=== PATIENT | female | born 1935 | race Caucasian/White ===

== ENCOUNTER → 2018-01-30 | Outpatient (CLI) | payer MEDICARE ==
[~2018-01-30] MED LIST: ALDACTONE25 MG PO; ALLOPURINOL100 MG PO; ATELVIA35 MG PO; AZITHROMYCIN250 MG PO; CALCIUM600 MG PO; CEFTIN500 MG PO; CITALOPRAM HBR20 MG PO; CLONAZEPAM0.5 MG PO; COQ-1030 MG PO; ECPIRIN325 MG PO; EMBEDA PO; FAMOTIDINE20 MG PO; FERROUS SULFAT325 MG PO; FOLIC ACID1 MG PO; FUROSEMIDE40 MG PO; INTRINSI B12-F1 EACH PO; IOPAMIDOL 370 MG/ML 200 ML INFUS..BTL INJ ONE; KLOR-CON 88 MEQ PO; LEVAQUIN500 MG PO; LEVOTHYROXINE50 MCG PO; LEVOTHYROXINE75 MCG PO; LISINOPRIL10 MG PO; METHOTREXATE2.5 MG PO; METOPROLOL SUCC25 MG PO; METOPROLOL TART25 MG PO; PREDNISONE20 MG PO; PREDNISONE5 MG PO; RAMIPRIL5 MG PO; ROBAXIN-750750 MG PO; SIMVASTATIN20 MG PO; SIMVASTATIN40 MG PO; SODIUM BICARBO650 MG PO; SODIUM CHLORIDE 0.9% 50ML 50 ML ONE; TIZANIDINE HCL4 M1 PO; ULTRAM 50MG50 MG PO; ULTRAM50 MG PO; VALIUM5 MG PO; ZESTRIL10 MG PO
[2018-01-30 16:04] LABS: BLOOD UREA NITROGEN 15 mg/dL (7-26); BUN/CREATININE RATIO 21 (6-25); EST GLOMERULAR FILTRATION RATE > 60 ML/MIN (60-)
--- NOTE | 2018-01-30 19:03 | Diagnostic Imaging Report ---
PROCEDURE: CT scan of the chest WITH intravenous contrast, using standard protocol. TECHNIQUE: The chest was scanned utilizing a multidetector helical scanner from the lung apex through the level of the adrenal glands after the IV administration of 100 cc of Isovue 370. Coronal and sagittal multiplanar reformations were obtained. COMPARISON: Patients [facility], CT, CT CHEST WO, 12/14/2016, 12:39. Patients [facility], CT, CT CHEST W, 05/16/2015, 14:45. INDICATIONS: ABNORMAL CHEST X RAY FINDINGS: Lines/tubes: None. Lungs and Airways: Interval progression of subpleural reticulation, architectural distortion, traction bronchiectasis, and honeycombing involving predominantly the lower lobes bilaterally, lingula, and lower aspect of the right middle lobe. Interval development of focal consolidation in the posterior right upper lobe against the major fissure, with an associated 4.4 x 4.1 x 3.7 cm irregularly thick walled cavitary lesion (series 3, image 41 and sagittal image 34). No other cavitary lesions. No other consolidation. Airways are clear, without endobronchial lesions. Pleura: No effusion, or pneumothorax. Heart and mediastinum: Thyroid is unremarkable. Interval increase in cardiomegaly, with enlargement of the left atrium. Atherosclerotic calcification of the coronary arteries and thoracic aorta. Aorta is non-aneurysmal. The main pulmonary artery measures 3.0 cm. Lymph nodes: Enlarged highest mediastinal/ prevascular lymph node measuring 1.5 cm in short axis (series 2, image 29). Enlarged right lower paratracheal lymph node, measuring 1.2 cm in short axis (series 2, image 39). Enlarged left lower paratracheal lymph node, measuring 1.0 cm in short axis (series 2, image 44). Enlarged right hilar lymph node, measuring 1.3 cm in short axis (series 2, image 52). Enlarged left hilar lymph node, measuring 1.3 cm in short axis (series 2, image 54). No axillary adenopathy. Abdomen: Limited contrast-enhanced views of the upper abdomen show no abnormality within the visualized pancreas, or left kidney. Calcified splenic and hepatic granulomata. The adrenal glands are normal. Bones: No aggressive lytic lesions. Multilevel degenerative disc changes in the thoracic spine. Generalized osteopenia. IMPRESSION: 1. interval development of 4.4 cm thick walled cavitary lesion in the posterior right upper lobe against the major fissure. Primary diagnostic considerations are infection (particularly TB or atypical mycobacterial disease or less likely pulmonary abscess as complication of necrotizing pneumonia) versus necrotizing primary lung neoplasm. 2. Interval progression of pulmonary findings suggestive of IPF. 3. Enlarged mediastinal, and hilar nodes, which may be reactive in the setting of infection or metastatic in the setting of primary bronchogenic neoplasm. 4. Prior granulomatous disease. Ranulfo Davenport M.D. Dictated by: Ranulfo Davenport M.D. on 01/30/2018 at 19:03 Electronically approved by: Ranulfo Davenport M.D. on 01/30/2018 at 19:03
== END ==
LOC: CT 13:51
PROVIDERS: ATTEND Internal Medicine
DX: R91.8 Other nonspecific abnormal finding of lung field (principal)
CPT/HCPCS: 36415; 71260; 82565; 84520; Q9967

== ENCOUNTER 2018-09-08 19:58 | Inpatient (IN) | payer MEDICARE, OTHER ==
[~2018-09-08] VITALS: Ht 154.9 cm; Wt 54.4 kg
[~2018-09-08 19:58] MED LIST changes: -IOPAMIDOL 370 MG/ML 200 ML INFUS..BTL INJ ONE; -SODIUM CHLORIDE 0.9% 50ML 50 ML ONE
[2018-09-08] MEDS ORDERED: ACETAMINOPHEN 1000 MG/100 ML 100 ML IV ONE (20:06)
[2018-09-08] MEDS ORDERED: SODIUM CHLORIDE 0.9% 1000ML 1,000 ML ONE (20:06)
[2018-09-08] MEDS ORDERED: PANTOPRAZOLE 40 MG 10ML VIAL IV STA (20:07)
[2018-09-08] MEDS ORDERED: ACETAMINOPHEN 1000 MG/100 ML IV STA (20:07)
[2018-09-08] MEDS ORDERED: SODIUM CHLORIDE 0.9% 1000ML 1,000 ML IV STA (20:07)
[2018-09-08] MEDS ORDERED: ACETAMINOPHEN 1000 MG/100 ML IV PRN (20:15)
[2018-09-08 20:45] LABS: BASOPHILS # (AUTO) 0.2 (0.0-0.1); BASOPHILS % 0.5 % (0.0-1.0); HEMATOCRIT 43.5 % (34.2-44.1); HEMOGLOBIN 14.8 g/dL (12.0-16.0); LYMPHOCYTES # (AUTO) 2.3 (1.0-3.2); LYMPHOCYTES % 8.3 % (18.0-39.1); MEAN CORPUSCULAR HEMOGLOBIN 33.7 pg (28-32); MEAN CORPUSCULAR VOLUME 99.1 fL (81-99); MONOCYTES # (AUTO) 0.3 (0.2-0.8); MONOCYTES % 1.2 % (4.4-11.3); NEUTROPHILS # (AUTO) 24.5 (2.1-6.9); NEUTROPHILS % 88.6 % (38.7-80.0); PLATELET COUNT 356 x10e3/uL (140-360); RED BLOOD COUNT 4.39 x10e6/uL (3.6-5.1); RED CELL DISTRIBUTION WIDTH 14.9 % (11.7-14.4)
[2018-09-08] MEDS ORDERED: VANCOMYCIN 1GM/NS 250 ML 250 ML IV ONE (20:45)
[2018-09-08 20:50] LABS: BILIRUBIN,URINE 1+ (NEGATIVE); CLARITY,URINE SL CLOUDY (CLEAR); COLOR,URINE YELLOW (YELLOW); KETONES,URINE NEGATIVE (NEGATIVE); LEUKOCYTE ESTERASE ,URINE TRACE (NEGATIVE); NITRITE,URINE POSITIVE (NEGATIVE); PROTEIN,URINE DIPSTICK 2+ (NEGATIVE); URINE UROBILINOGEN 0.2 mg/dL (0.2 - 1)
[2018-09-08 20:57] LABS: INR 1.16; PROTHROMBIN TIME 15.8 seconds (11.9-14.5)
[2018-09-08 20:58] LABS: PARTIAL THROMBOPLASTIN TIME 27.5 seconds (23.8-35.5)
[2018-09-08 21:06] LABS: ALANINE AMINOTRANSFERASE 15 IU/L (0-55); ALBUMIN 2.2 g/dL (3.5-5.0); ALBUMIN/GLOBULIN RATIO 0.4 (0.8-2.0); ALKALINE PHOSPHATASE 90 IU/L (40-150); ANION GAP 18.7 mmol/L (8-16); BLOOD UREA NITROGEN 33 mg/dL (7-26); BUN/CREATININE RATIO 39 (6-25); CALCIUM 9.2 mg/dL (8.4-10.2); CARBON DIOXIDE 17 mmol/L (22-29); CHLORIDE 109 mmol/L (98-107); CREATINE KINASE 79 IU/L (29-168); CREATININE, SERUM 0.84 mg/dL (0.57-1.11); EST GLOMERULAR FILTRATION RATE > 60 ML/MIN (60-); GLUCOSE 221 mg/dL (74-118); MAGNESIUM 1.9 MG/DL (1.3-2.1); POTASSIUM 3.7 mmol/L (3.5-5.1); SODIUM 141 mmol/L (136-145)
[2018-09-08 21:07] LABS: BACTERIA,URINE MANY /HPF; RBC,URINE 21-50 /HPF (0-5); WBC,URINE (MAN) 21-50 /HPF (0-5)
[2018-09-08 21:13] LABS: B-TYPE NATRIURETIC PEPTIDE2 552.8 pg/mL (0-100)
[2018-09-08] MEDS: CEFEPIME HCL 2 GM VIAL IV SCH (21:48)
--- NOTE | 2018-09-08 22:15 | Diagnostic Imaging Report ---
EXAMINATION: CHEST SINGLE (PORTABLE) INDICATION: Fevers, altered mental status COMPARISON: 06/26/2017 FINDINGS: TUBES and LINES: None. LUNGS: Lungs are not well inflated. There are bibasilar atelectasis. There is mild prominence of the central pulmonary vasculature, consistent with pulmonary venous congestion. There are areas of confluent airspace opacity in the left lung base, right lung base and lateral right upper lobe with evidence of cystic bronchiectasis PLEURA: No pleural effusion or pneumothorax. HEART AND MEDIASTINUM: The cardiomediastinal silhouette is unremarkable. There are atherosclerotic calcifications within the aorta. BONES AND SOFT TISSUES: No acute osseous lesion. Soft tissues are unremarkable. UPPER ABDOMEN: No free air under the diaphragm. IMPRESSION: 1. Findings are compatible with chronic bilateral bronchiectasis and associated airspace opacity suspicious for superimposed infection. CT of the chest without contrast can be obtained for better characterization. Signed by: Dr. Steven Urrutia M.D. on 09/08/2018 10:12 PM
[2018-09-08] MEDS ORDERED: FERROUS SULFAT325 MG PO (22:20)
[2018-09-08] MEDS ORDERED: CLONAZEPAM0.5 MG PO (22:20)
[2018-09-08] MEDS ORDERED: GERI-TUSSI100 MG/5 M PO (22:20)
[2018-09-08] MEDS ORDERED: GABAPENTIN100 MG PO ×2 (22:20)
[2018-09-08] MEDS ORDERED: ACETAMINOPHEN325 M1 PO (22:20)
[2018-09-08] MEDS ORDERED: DIFF-STAT POWD1 EACH PO (22:20)
[2018-09-08] MEDS ORDERED: TYLENOL WITH C1 EACH PO (22:20)
[2018-09-08] MEDS ORDERED: IMODIUM2 MG PO (22:20)
[2018-09-08] MEDS ORDERED: QUESTRAN PACKET4 GM PO (22:20)
[2018-09-08] MEDS ORDERED: DOCUSATE SODIU100 MG PO (22:20)
[2018-09-08] MEDS ORDERED: SODIUM CHLORIDE 0.9% 1000ML 1,000 ML IV ONE (22:45)
[2018-09-08] MEDS ORDERED: DEXTROSE 50% SYRINGE 50 ML IV PRN (22:45)
[2018-09-08] MEDS ORDERED: ONDANSETRON HCL INJ 2 MG/ML VIAL IV PRN (22:45)
--- NOTE | 2018-09-08 22:52 | Diagnostic Imaging Report ---
EXAMINATION: Head CT without contrast. HISTORY:Altered mental status. COMPARISON:Report of CT brain from 08/20 2010 and MRI brain from 08/21/2010. Images are not available for comparison at the time of interpretation. TECHNIQUE: Multidetector axial images were obtained from the foramen magnum to the vertex without contrast. The images were reconstructed using brain and bone algorithms. Thin section brain images were reformatted into coronal and sagittal planes. Dose modulation, iterative reconstruction, and/or weight based adjustment of the mA/kV was utilized to reduce the radiation dose to as low as reasonably achievable. Intravenous contrast: None IMAGE QUALITY: Suboptimal evaluation due to significant motion-related streak artifacts. FINDINGS: Skull/scalp: No lytic or blastic. lesions. No surgical changes. Parenchyma: Suboptimal evaluation due to significant motion artifacts, despite the limitation no gross acute intracranial hemorrhage or mass. Large cortical-based hypodensity in right centrum semiovale, church radiata, middle, inferior frontal gyrus, 3 central gyrus and parietal lobe with regional volume loss represents chronic encephalomalacia from prior vascular insult in MCA territory. Possibility of superimposed acute on chronic vascular insult is not excluded. Nonspecific bilateral frontoparietal patchy white matter hypodensity are likely related to small vessel ischemic changes. Arteries: No density suggestive of thrombosis. Atherosclerotic calcification in bilateral carotid siphon. Dural sinuses: No abnormal density suggestive of thrombosis. Ventricles: Moderate compensated dilatation due to volume loss with superimposed exvacuodilatation of right lateral ventricle. No acute hydrocephalus. Extra-axial spaces: No abnormal density. Brain volume: Generalized age-related cerebral volume loss. Craniocervical junction: No mass, Chiari malformation, or basilar invagination. Sella: Partial empty sella. Paranasal/mastoid sinuses: Complete opacification of right mastoid air cells. IMPRESSION: Suboptimal evaluation due to significant motion artifacts, despite the limitation no gross acute intracranial abnormality. 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 Moderate supratentorial white matter microvascular ischemic changes. Generalized age-related cerebral volume loss. Signed by: Dr. Anita Anderson M.D. on 09/08/2018 10:49 PM
[2018-09-08] MEDS: METRONIDAZOLE 500MG/NS 100ML 100 ML IV SCH (23:44)
[2018-09-09] VITALS (9 sets, daily range): BP systolic 96–120; BP diastolic 55–71
[2018-09-09] MEDS: METRONIDAZOLE 500MG/NS 100ML 100 ML IV SCH ×4 (06:00→23:58)
[2018-09-09 06:30] LABS: BASOPHILS # (AUTO) 0.2 (0.0-0.1); BASOPHILS % 0.6 % (0.0-1.0); HEMATOCRIT 46.1 % (34.2-44.1); HEMOGLOBIN 15.6 g/dL (12.0-16.0); LYMPHOCYTES # (AUTO) 1.6 (1.0-3.2); LYMPHOCYTES % 6.1 % (18.0-39.1); MEAN CORPUSCULAR HEMOGLOBIN 33.8 pg (28-32); MEAN CORPUSCULAR HGB CONC 33.8 g/dL (31-35); MEAN CORPUSCULAR VOLUME 99.8 fL (81-99); MONOCYTES # (AUTO) 0.2 (0.2-0.8); MONOCYTES % 0.8 % (4.4-11.3); NEUTROPHILS # (AUTO) 24.6 (2.1-6.9); NEUTROPHILS % 90.9 % (38.7-80.0); PLATELET COUNT 300 x10e3/uL (140-360); RED BLOOD COUNT 4.62 x10e6/uL (3.6-5.1)
[2018-09-09] MEDS: INSULIN REGULAR, HUMAN 100 UNIT/1 ML 3ML VIAL SQ SCH ×4 (07:30→20:58)
[2018-09-09 08:25] LABS: ALANINE AMINOTRANSFERASE 14 IU/L (0-55); ALBUMIN 2.1 g/dL (3.5-5.0); ALBUMIN/GLOBULIN RATIO 0.4 (0.8-2.0); ALKALINE PHOSPHATASE 85 IU/L (40-150); ANION GAP 19.5 mmol/L (8-16); BLOOD UREA NITROGEN 33 mg/dL (7-26); BUN/CREATININE RATIO 41 (6-25); CALCIUM 8.9 mg/dL (8.4-10.2); CARBON DIOXIDE 19 mmol/L (22-29); CHLORIDE 109 mmol/L (98-107); CREATININE, SERUM 0.81 mg/dL (0.57-1.11); EST GLOMERULAR FILTRATION RATE > 60 ML/MIN (60-); GLUCOSE 129 mg/dL (74-118); POTASSIUM 3.5 mmol/L (3.5-5.1); SODIUM 144 mmol/L (136-145)
--- NOTE | 2018-09-09 08:57 | History and Physical ---
CHIEF COMPLAINT 1. Diarrhea. 2. High white count. 3. Change in mental status. HPI: This is an 83-year-old half-way resident at [facility] in [place] with a past medical history of rheumatoid arthritis, rheumatic lung disease, pulmonary tuberculosis, hypothyroidism, CVA, atherosclerotic heart disease, was in her usual health until a few days when she started having episodes of diarrhea. Found to have a high white count. White count increased. Diarrhea not controlled. She also had burning on urination. The patient with also change in mental status. No cough. No shortness of breath. No chest pain. No leg pain. No leg swelling. No seizures. No new focal weakness. PAST MEDICAL HISTORY 1. Atherosclerotic heart disease. 2. CVA with left hemiplegia. 3. Rheumatic lung disease with pulmonary fibrosis. 4. COPD. 5. Hypertension. 6. Hypothyroidism. PAST SURGICAL HISTORY: None. HABITS: Denies smoking. Denies alcohol. Denies illicit drug use. SOCIAL HISTORY: This patient is a . Lives at [facility] in [place]. MEDICATIONS: Per discharge summary. Noncontributory. REVIEW OF SYSTEMS GENERAL: Has weakness. HEENT: No . CARDIOPULMONARY: No chest pain. Has no shortness of breath. No cough or hematemesis. ABDOMEN: No abdominal pain. No nausea. No vomiting but has watery diarrhea with foul smell. GENITOURINARY: Has some dysuria. MUSCULOSKELETAL: No joint pain. LEVEL VIAL INSPECTOR AND TESTER: Has left-sided hemiplegia, but no seizures. PHYSICAL EXAMINATION GENERAL: An 83-year-old female with . VITALS: Temperature 98.2, pulse 79, respiratory rate 18, blood pressure 103/55. HEENT: Head is normocephalic and atraumatic. Sclerae pale and reacting to light. NECK: No JVD. No carotid bruits. SKIN: Dry. Tongue is dry. LUNGS: Air entry fair. Decreased breath sounds in both bases. HEART: S1 and S2. Regular rate and rhythm. No S3. No S4. No murmurs. ABDOMEN: Soft and nontender. No guarding. No rigidity. EXTREMITIES: No edema. Peripheral pulses +1. LEVEL VIAL INSPECTOR AND TESTER: The patient has left hemiplegia and altered mental status. Nonverbal. Brain CT with no new CVA. Chest x-ray findings compatible with bilateral bronchiectasis present, as well as infection. WBC is 21,250. Nitrate positive. Leukocyte trace. Sodium 141, potassium 3.7, BUN 33, creatinine 0.84, glucose 221. Albumin is 2.2. White count 27.09, hemoglobin 15.6, hematocrit 46.1, and platelets 300,000. ASSESSMENT 1. Sepsis. 2. Possible urosepsis. 3. Possible Clostridium difficile colitis, sepsis. 4. Possible pneumonia. 5. Metabolic encephalopathy. 6. Recently treated pulmonary tuberculosis. 7. History of pulmonary fibrosis and rheumatic lung disease. 8. Chronic obstructive pulmonary disease. 9. History of cerebrovascular accident with left hemiplegia. 10. Hypothyroidism. 11. Hypertension. PLAN: Admit the patient to medical floor. IV cefepime 2 g q.12 h. IV Flagyl 500 mg IV q.6 h. IV fluids. Normal saline at 75 mL per hour. Continue half-way medicine. DNR. Prognosis poor. Pulmonary and ID consult. Will discuss with family. Job#: [id number] [place]
[2018-09-09] MEDS: BALSAM PERU/CASTOR OIL 60 GM OINT...G. TP SCH ×2 (09:00→16:42)
[2018-09-09 09:12] LABS: BAND NEUTROPHILS % (MANUAL) 5 %; LYMPHOCYTES % (MANUAL) 3 % (19-48); MONOCYTES % (MANUAL) 2 % (3.4-9.0); NEUTROPHILS % (MANUAL) 90 % (40-74); PLATELET ESTIMATE ADEQUATE; PLATELET MORPHOLOGY COMMENT NORMAL; RBC MORPHOLOGY COMMENT NORMAL
[2018-09-09] MEDS: PANTOPRAZOLE 40 MG 10ML VIAL IV SCH (09:55)
[2018-09-09] MEDS: FOLIC ACID 1 MG TAB PO SCH ×3 (09:55→20:57)
[2018-09-09] MEDS: ASPIRIN 325 MG TAB EC PO SCH (09:55)
[2018-09-09] MEDS: CEFEPIME HCL 2 GM VIAL IV SCH (09:55)
[2018-09-09] MEDS: FAMOTIDINE 20 MG TAB PO SCH ×2 (09:56→16:30)
[2018-09-09] MEDS: LEVOTHYROXINE SODIUM 75 MCG TAB PO SCH (09:59)
[2018-09-09] MEDS: CHOLESTYRAMINE 4 GM PACKET PO SCH ×2 (09:59→22:05)
[2018-09-09] MEDS: PREDNISONE 5 MG TAB PO SCH (09:59)
[2018-09-09] MEDS ORDERED: PIPER-TAZ 3.375 GM 50 ML IV SCH (13:00)
[2018-09-09] MEDS ORDERED: VANCOMYCIN 1GM/NS 250 ML 250 ML IV SCH (14:00)
--- NOTE | 2018-09-09 14:18 | Consultation ---
DATE OF CONSULTATION: PULMONARY CONSULTATION REASON FOR THE CONSULT: History of Mycobacterium avium, MAC infection, and pulmonary fibrosis. HPI: Ms. Barber is an 83-year-old female, very well known to me from previous admission here and also from my office visits. She has a history of pulmonary fibrosis. 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 She also sustained a stroke, also has a history of rheumatoid arthritis, and has been at [facility]. I spoke to Dr. Simmons, who is the infectious disease doctor for Ms. Barber. Patient did not tolerate MAC treatment which was discontinued, and she did not receive any treatment for MAC, and I did a bronchoscopy at [facility] which was negative for tuberculosis. She is currently altered and unable to give me any history. The source of history is the chart. REVIEW OF SYSTEMS: Unable to elicit a detailed review of systems from the patient because of her mental status. PAST MEDICAL HISTORY: Pulmonary fibrosis, rheumatic lung disease, rheumatoid arthritis, history of CVA with left hemiplegia, dementia, hypertension, hypothyroidism. FAMILY HISTORY AND SOCIAL HISTORY: She does not smoke, does not drink. Currently living at the skilled nursing. The son-in-law and daughter are involved in the care. PHYSICAL EXAMINATION VITAL SIGNS: Temperature 98.3, pulse of 103, blood pressure 106/55, respiratory rate of 18, O2 sat 95%. HEENT: Head atraumatic, normocephalic. Poor dentition. Is not cooperative with opening her mouth. CHEST: Some crackles bilaterally. HEART: S1, S2 audible. ABDOMEN: Soft, nontender. EXTREMITIES: No pedal edema. She is contracted, weak because of the stroke. LABS: White count of 27,000, hemoglobin 15.6, platelets 300. Chemistry; sodium 144, potassium 3.5, chloride 109, carbon dioxide 19, BUN 33, creatinine 0.8. Her lactic acid was 30.6 on admission, went down to 24.6. She underwent a brain CT, which showed chronic encephalomalacia. She had a chest x-ray done, which I am unable to pull the films and it shows bronchiectasis and superimposed infection. ASSESSMENT: Ms. Barber is an 83-year-old female with rheumatic lung disease, pulmonary fibrosis, history of fibrocavitary Mycobacterium avium complex disease. Patient was under treatment with Dr. Simmons; however, she was unable to tolerate the treatment. I had a detailed discussion with Dr. Simmons and currently, she is not on any treatment. She came in with leukocytosis, high lactic acid, and sepsis with urine culture growing gram-negative bacillus. Blood culture is pending. CURRENT PROBLEMS 1. Leukocytosis infection, possibility of pneumonia. I am unable to pull the chest x-ray films; however, the report shows probably superimposed pneumonia on fibrocavitary MAC disease. 2. Urinary tract infection. 3. Rheumatic lung disease. 4. Debility, dementia, and weakness. 5. Bedbound status. 6. History of stroke. 7. Hypothyroidism. 8. Malnutrition and severe weight loss. PLAN: Patient has received a dose of vancomycin in the emergency room. I will start the patient on vancomycin and Zosyn. Discontinue the cefepime. Possibility of anaerobic infection is also there. Lactic acid is improving. Patient is on IV hydration, which will be continued. Overall, with fibrocavitary lung disease, history of stroke, and her functional status, the prognosis is poor. I will discontinue the pulmonary TB isolation as patient does not have pulmonary tuberculosis. She has pulmonary MAC disease. Thank you for this consult. Job#: [id number] [place]
--- OUTSIDE RECORDS SUMMARY | 2018-09-09 14:26 | XMS REPORT ---
[facility] Address Unknown Phone Unavailable Care Team Providers Care Corporate Counselor Name Role Phone Wei CRUZ Unavailable Unavailable KIA MÉNDEZ Unavailable Unavailable Payers Payer Name Policy Type Policy Number Effective Date Expiration Date Problems This patient has no known problems. Allergies, Adverse Reactions, Alerts Allergy Name Allergy Type Status Severity Reaction(s) Onset Date Inactive Date Treating Clinician Comments lisinopril DA Active SV 2018-03-11 00:00:00 celecoxib DA Active U 2018-03-11 00:00:00 Medications This patient has no known medications. Results Test Description Test Time Test Comments Text Results Atomic Results Result Comments CT BRAIN WO 2018-09-08 22:41:00 [facility] [address] [place] [address] Patient Name: RISSA CAN MR #: [id number] : 1935 Age/Sex: 83/F Req #: [id number] Adm Physician: Ordered by: CHRISTOPHER CRUZ MD Report #: [id number] Location: ER Room/Bed: Procedure: [id number] CT/CT BRAIN WO Exam Date: 09/08/18 Exam Time: 2141 REPORT STATUS: Signed EXAMINATION: Head CT without contrast. HISTORY:Altered mental status. COMPARISON:Report of CT brain from 08/20 2010 and MRI brain from 08/21/2010. Images are not available for comparison at the time of interpretation. TECHNIQUE: Multidetector axial images were obtained from the foramen magnum to the vertex without contrast. The images were reconstructed using brain and bone algorithms. Thin section brain images were reformatted into coronal and sagittal planes. Dose modulation, iterative reconstruction, and/or weight based adjustment of the mA/kV was utilized to reduce the radiation dose to as low as reasonably achievable. Intravenous contrast: None IMAGE QUALITY: Suboptimal evaluation due to significant motion- related streak artifacts. FINDINGS: Skull/scalp: No lytic or blastic. lesions. No surgical changes. Parenchyma: Suboptimal evaluation due to significant motion artifacts, despite the limitation no gross acute intracranial hemorrhage or mass. Large cortical-based hypodensity in right centrum semiovale, church radiata, middle, inferior frontal gyrus, 3 central gyrus and parietal lobe with regional volume loss represents chronic encephalomalacia from prior vascular insult in MCA territory. Possibility of superimposed acute on chronic vascular insult is not excluded. Nonspecific bilateral frontoparietal patchy white matter hypodensity are likely related to small vessel ischemic changes. Arteries: No density suggestive of thrombosis. Atherosclerotic calcification in bilateral carotid siphon. Dural sinuses: No abnormal density suggestive of thrombosis. Ventricles: Moderate compensated dilatation due to volume loss with superimposed exvacuodilatation of right lateral ventricle. No acute hydrocephalus. Extra-axial spaces: No abnormal density. Brain volume: Generalized age- related cerebral volume loss. Craniocervical junction: No mass, Chiari malformation, or basilar invagination. Sella: Partial empty sella. Paranasal/mastoid sinuses: Complete opacification of right mastoid air cells. IMPRESSION: Suboptimal evaluation due to significant motion artifacts, despite the limitation no gross acute intracranial abnormality. 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 Moderate supratentorial white matter microvascular ischemic changes. Generalized age-related cerebral volume loss. Signed by: Dr. Anita Anderson M.D. on 09/08/2018 10:49 PM Dictated By: ANITA ANDERSON MD 48 Transcribed By: WENDY on 09/08/182248 COPY TO: CHRISTOPHER CRUZ MD CHEST SINGLE (PORTABLE) 2018-09-08 22:11:00 [place] [address] Patient Name: RISSA CAN MR #: [id number] : 1935 Age/Sex: 83/F Req #: [id number] Adm Physician: Ordered by: CHRISTOPHER CRUZ MD Report #: [id number] Location: ER Room/Bed: Procedure: [id number] DX/CHEST SINGLE (PORTABLE) Exam Date: 09/08/18 Exam Time: 2139 REPORT STATUS: Signed EXAMINATION: CHEST SINGLE (PORTABLE) INDICATION: Fevers, altered mental status COMPARISON: 06/26/2017 FINDINGS: TUBES and LINES: None. LUNGS: Lungs are not well inflated. There are bibasilar atelectasis. There is mild prominence of the central pulmonary vasculature, consistent with pulmonary venous congestion. There are areas of confluent airspace opacity in the left lung base, right lung base and lateral right upper lobe with evidence of cystic bronchiectasis PLEURA: No pleural effusion or pneumothorax. HEART AND MEDIASTINUM: The cardiomediastinal silhouette is unremarkable. There are atherosclerotic calcifications within the aorta. BONES AND SOFT TISSUES: No acute osseous lesion. Soft tissues are unremarkable. UPPER ABDOMEN: No free air under the diaphragm. IMPRESSION: 1. Findings are compatible with chronic bilateral bronchiectasis and associated airspace opacity suspicious for superimposed infection. CT of the chest without contrast can be obtained for better characterization. Signed by: Dr. Steven Urrutia M.D. on 09/08/2018 10:12 PM Dictated By: STEVEN SWANN MD 11 Transcribed By: WENDY on 09/08/182211 COPY TO: CHRISTOPHER CRUZ MD CT CHEST W [place] [address] Patient Name: RISSA CAN MR #: [id number] : 1935 Age/Sex: 82/F Req #: [id number] Adm Physician: Ordered by: KIA MÉNDEZ MD Report #: [id number] Location: CT Room/Bed: Procedure: [id number] CT/CT CHEST W Exam Date: 01/30/18 Exam Time: 1620 REPORT STATUS: Signed PROCEDURE: CT scan of the chest WITH intravenous contrast, using standard protocol. TECHNIQUE: The chest was scanned utilizing a multidetector helical scanner from the lung apex through the level of the adrenal glands after the IV administration of 100 cc of Isovue 370. Coronal and sagittal multiplanar reformations were obtained. COMPARISON: [facility], CT, CT CHEST WO, 12/14/2016, 12:39. [facility], CT, CT CHEST W, 05/16/2015, 14:45. INDICATIONS: ABNORMAL CHEST X RAY FINDINGS: Lines/tubes: None. Lungs and Airways: Interval progression of subpleural reticulation, architectural distortion, traction bronchiectasis, and honeycombing involving predominantly the lower lobes bilaterally, lingula, and lower aspect of the right middle lobe. Interval development of focal consolidation in the posterior right upper lobe against the major fissure, with an associated 4.4 x 4.1 x 3.7 cm irregularly thick walled cavitary lesion (series 3, image 41 and sagittal image 34). No other cavitary lesions. No other consolidation. Airways are clear, without endobronchial lesions. Pleura: No effusion, or pneumothorax. Heart and mediastinum: Thyroid is unremarkable. Interval increase in cardiomegaly, with enlargement of the left atrium. Atherosclerotic calcification of the coronary arteries and thoracic aorta. Aorta is non-aneurysmal. The main pulmonary artery measures 3.0 cm. Lymph nodes: Enlarged highest mediastinal/ prevascular lymph node measuring 1.5 cm in short axis (series 2, image 29). Enlarged right lower paratracheal lymph node, measuring 1.2 cm in short axis (series 2, image 39). Enlarged left lower paratracheal lymph node, measuring 1.0 cm in short axis (series 2, image 44). Enlarged right hilar lymph node, measuring 1.3 cm in short axis (series 2, image 52). Enlarged left hilar lymph node, measuring 1.3 cm in short axis (series 2, image 54). No axillary adenopathy. Abdomen: Limited contrast-enhanced views of the upper abdomen show no abnormality within the visualized pancreas, or left kidney. Calcified splenic and hepatic granulomata. The adrenal glands are normal. Bones: No aggressive lytic lesions. Multilevel degenerative disc changes in the thoracic spine. Generalized osteopenia. IMPRESSION: 1. interval development of 4.4 cm thick walled cavitary lesion in the posterior right upper lobe against the major fissure. Primary diagnostic considerations are infection (particularly TB or atypical mycobacterial disease or less likely pulmonary abscess as complication of necrotizing pneumonia) versus necrotizing primary lung neoplasm. 2. Interval progression of pulmonary findings suggestive of IPF. 3. Enlarged mediastinal, and hilar nodes, which may be reactive in the setting of infection or metastatic in the setting of primary bronchogenic neoplasm. 4. Prior granulomatous disease. Eduar aDvenport M.D. Dictated by: Eduar Davenport M.D. on 01/30/2018 at 19:03 Electronically approved by: Eduar Davenport M.D. on 01/30/2018 at 19:03 Dictated By: EDUAR DAVENPORT MD 02 Transcribed By: JOSE DAVID on 01/30/181902 COPY TO: KIA MÉNDEZ MD
--- NOTE | 2018-09-09 16:27 | Consultation ---
DATE OF CONSULTATION: REASON FOR CONSULTATION: Sepsis. HISTORY OF PRESENT ILLNESS: This patient who is an 83-year-old white female does not really provide any meaningful information. History was taken mainly from the chart. She is coming from [facility] with fever, altered mental status, sepsis, and diarrhea. The patient who has history of rheumatoid arthritis, rheumatic lung disease, pulmonary tuberculosis, before hypothyroidism, CVA, atherosclerotic disease, and coronary artery disease. Apparently, she was in stable condition until she is not having diarrhea, fever, chills, elevated white count. She was brought here. The patient is currently confused. The patient does not provide any meaningful information. She does have history of atherosclerotic heart disease, CVA, rheumatoid lung disease, pulmonary fibrosis, COPD, hypertension, and hypothyroidism. PAST MEDICAL HISTORY: Could not be obtained. REVIEW OF SYSTEMS: Could not be obtained. PHYSICAL EXAMINATION GENERAL: She is as mentioned above nonverbal and noncommunicative. VITALS: Stable. T max 101.9. HEENT: Normocephalic. NECK: No JVD. No lymphadenopathy. No thyromegaly. CHEST: Few crackles. COR: S1, S2. No S3, S4, or murmur. ABDOMEN: Soft, distended. EXTREMITIES: No edema. LAB: White count is 27.09, hemoglobin 15, hematocrit 46. Her sodium 144, potassium 3.5, creatinine 0.81. Urine culture is gram-negative rods. Blood cultures is still pending. She had a chest x-ray which shows bilateral bronchiectasis. IMPRESSION: Diarrhea, concerned about Clostridium difficile. Discontinue vancomycin. Discontinue Zosyn. We will put her on metronidazole. Also, we will give oral vancomycin. The patient does not swallow with feeding tube and give oral vancomycin. Continue supportive care. Prognosis is poor. Other medical problem as mentioned above. We will follow with you. Job#: [id number] VAS
[2018-09-09] MEDS: SODIUM CHLORIDE 0.9% 1000ML 1,000 ML IV SCH (18:33)
--- NOTE | 2018-09-09 19:56 | Diagnostic Imaging Report ---
EXAM: ABDOMEN-1VIEW (KUB), DATE: 09/09/2018 5:57 PM INDICATION: NG tube placement. COMPARISON: None FINDINGS: LINES/TUBES: Nasogastric tube with tip projecting over the gastric body. Sidehole projects at the expected level of the gastroesophageal junction. BOWEL PATTERN: Paucity of small bowel gas. Gas present within the colon and rectum. SOFT TISSUES: Vascular calcifications. No mass effect. LUNG BASES: Limited evaluation. Please refer to dedicated chest radiograph 09/08/2018 for description of chronic bilateral bronchiectasis with possible superimposed infection. BONES: No acute findings. Left femoral intramedullary jake. IMPRESSION: Nasogastric tube tip projects over the gastric body. Sidehole projects over the expected GE junction. Signed by: DR. Magno Spear MD on 09/09/2018 7:53 PM
[2018-09-09] MEDS: VANCOMYCIN 250MG/5ML ORAL SOLN PO SCH ×2 (20:56→23:58)
[2018-09-10] VITALS (8 sets, daily range): BP systolic 108–152; BP diastolic 58–82
[2018-09-10] MEDS: VANCOMYCIN 250MG/5ML ORAL SOLN PO SCH ×4 (05:33→23:20)
[2018-09-10] MEDS: METRONIDAZOLE 500MG/NS 100ML 100 ML IV SCH ×3 (05:33→21:24)
[2018-09-10] MEDS: LEVOTHYROXINE SODIUM 75 MCG TAB PO SCH (05:33)
[2018-09-10 07:13] LABS: BASOPHILS # (AUTO) 0.1 (0.0-0.1); BASOPHILS % 0.2 % (0.0-1.0); LYMPHOCYTES # (AUTO) 1.1 (1.0-3.2); LYMPHOCYTES % 3.8 % (18.0-39.1); MEAN CORPUSCULAR HEMOGLOBIN 33.7 pg (28-32); MEAN CORPUSCULAR HGB CONC 34.4 g/dL (31-35); MEAN CORPUSCULAR VOLUME 97.8 fL (81-99); MONOCYTES # (AUTO) 0.3 (0.2-0.8); MONOCYTES % 0.9 % (4.4-11.3); NEUTROPHILS # (AUTO) 25.7 (2.1-6.9); NEUTROPHILS % 92.9 % (38.7-80.0); PLATELET COUNT 229 x10e3/uL (140-360); RED BLOOD COUNT 3.68 x10e6/uL (3.6-5.1); RED CELL DISTRIBUTION WIDTH 14.9 % (11.7-14.4)
[2018-09-10 07:15] LABS: HEMOGLOBIN 12.4 g/dL (12.0-16.0)
[2018-09-10] MEDS: INSULIN REGULAR, HUMAN 100 UNIT/1 ML 3ML VIAL SQ SCH ×4 (07:30→20:17)
[2018-09-10 07:34] LABS: BLOOD UREA NITROGEN 30 mg/dL (7-26); BUN/CREATININE RATIO 47 (6-25); CARBON DIOXIDE 15 mmol/L (22-29); CHLORIDE 117 mmol/L (98-107); CREATININE, SERUM 0.64 mg/dL (0.57-1.11); EST GLOMERULAR FILTRATION RATE > 60 ML/MIN (60-); GLUCOSE 107 mg/dL (74-118); SODIUM 143 mmol/L (136-145)
[2018-09-10] MEDS: BALSAM PERU/CASTOR OIL 60 GM OINT...G. TP SCH ×3 (09:00→17:00)
[2018-09-10] MEDS ORDERED: VANCOMYCIN 750MG/NS 150ML IVPB 150 ML IV SCH (10:00)
[2018-09-10] MEDS: PANTOPRAZOLE 40 MG 10ML VIAL IV SCH (10:09)
[2018-09-10] MEDS: PREDNISONE 5 MG TAB PO SCH (10:09)
[2018-09-10] MEDS: FOLIC ACID 1 MG TAB PO SCH ×3 (10:09→21:24)
[2018-09-10] MEDS: FAMOTIDINE 20 MG TAB PO SCH ×2 (10:09→16:30)
[2018-09-10] MEDS: CHOLESTYRAMINE 4 GM PACKET PO SCH ×2 (10:09→21:24)
[2018-09-10] MEDS: ASPIRIN 325 MG TAB EC PO SCH (10:09)
[2018-09-10] MEDS: SODIUM CHLORIDE 0.9% 1000ML 1,000 ML IV SCH (10:30)
[2018-09-10 10:41] LABS: BAND NEUTROPHILS % (MANUAL) 10 %; LYMPHOCYTES % (MANUAL) 4 % (19-48); MONOCYTES % (MANUAL) 1 % (3.4-9.0); NEUTROPHILS % (MANUAL) 85 % (40-74); PLATELET ESTIMATE ADEQUATE; PLATELET MORPHOLOGY COMMENT NORMAL; RBC MORPHOLOGY COMMENT NORMAL
[2018-09-10] MEDS: ACETAMINOPHEN/CODEINE 300MG - 30MG TAB PO PRN ×2 (12:49→21:12)
[2018-09-10] MEDS: VANCOMYCIN 750MG/NS 150ML IVPB 150 ML IV SCH (14:10)
[2018-09-10] MEDS ORDERED: POTASSIUM CHLORIDE 20MEQ/100ML 200 ML IV ONE (14:30)
[2018-09-10] MEDS: KCL 20MEQ/.9 SOD CHL 1,000 ML IV SCH (15:00)
[2018-09-10] MEDS ORDERED: POTASSIUM CHLORIDE 20MEQ/15ML UDC NG ONE ×3 (19:45→21:45)
[2018-09-11] VITALS: BP 118/57
[2018-09-11] MEDS: VANCOMYCIN 750MG/NS 150ML IVPB 150 ML IV SCH (01:21)
[2018-09-11] MEDS: METRONIDAZOLE 500MG/NS 100ML 100 ML IV SCH ×4 (03:17→21:00)
[2018-09-11 04:00] VITALS: BP 122/90
[2018-09-11] MEDS: VANCOMYCIN 250MG/5ML ORAL SOLN PO SCH ×4 (06:05→23:48)
[2018-09-11] MEDS: LEVOTHYROXINE SODIUM 75 MCG TAB PO SCH (06:05)
[2018-09-11] MEDS: INSULIN REGULAR, HUMAN 100 UNIT/1 ML 3ML VIAL SQ SCH (07:30)
[2018-09-11 08:12] LABS: BASOPHILS # (AUTO) 0.1 (0.0-0.1); BASOPHILS % 0.3 % (0.0-1.0); EOSINOPHILS # (AUTO) 0.1 (0.0-0.4); EOSINOPHILS % 0.2 % (0.0-6.0); HEMATOCRIT 34.9 % (34.2-44.1); HEMOGLOBIN 11.4 g/dL (12.0-16.0); LYMPHOCYTES # (AUTO) 1.5 (1.0-3.2); LYMPHOCYTES % 6.2 % (18.0-39.1); MEAN CORPUSCULAR HEMOGLOBIN 33.6 pg (28-32); MEAN CORPUSCULAR HGB CONC 32.7 g/dL (31-35); MEAN CORPUSCULAR VOLUME 102.9 fL (81-99); MONOCYTES # (AUTO) 0.3 (0.2-0.8); MONOCYTES % 1.3 % (4.4-11.3); NEUTROPHILS # (AUTO) 22.4 (2.1-6.9); NEUTROPHILS % 90.6 % (38.7-80.0); PLATELET COUNT 169 x10e3/uL (140-360); RED BLOOD COUNT 3.39 x10e6/uL (3.6-5.1); RED CELL DISTRIBUTION WIDTH 15.9 % (11.7-14.4)
[2018-09-11 08:21] LABS: ALANINE AMINOTRANSFERASE 12 IU/L (0-55); ALBUMIN 1.6 g/dL (3.5-5.0); ALBUMIN/GLOBULIN RATIO 0.5 (0.8-2.0); ALKALINE PHOSPHATASE 60 IU/L (40-150); BLOOD UREA NITROGEN 19 mg/dL (7-26); BUN/CREATININE RATIO 37 (6-25); CALCIUM 7.6 mg/dL (8.4-10.2); CARBON DIOXIDE 14 mmol/L (22-29); CHLORIDE 121 mmol/L (98-107); CREATININE, SERUM 0.51 mg/dL (0.57-1.11); EST GLOMERULAR FILTRATION RATE > 60 ML/MIN (60-); GLUCOSE 87 mg/dL (74-118); SODIUM 144 mmol/L (136-145)
[2018-09-11] MEDS: FAMOTIDINE 20 MG TAB PO SCH ×2 (08:30→16:45)
[2018-09-11] MEDS: BALSAM PERU/CASTOR OIL 60 GM OINT...G. TP SCH ×3 (09:00→17:00)
[2018-09-11] MEDS: PREDNISONE 5 MG TAB PO SCH (09:00)
[2018-09-11] MEDS: FOLIC ACID 1 MG TAB PO SCH ×3 (09:00→21:00)
[2018-09-11] MEDS: ASPIRIN 325 MG TAB EC PO SCH (09:00)
[2018-09-11] MEDS: PANTOPRAZOLE 40 MG 10ML VIAL IV SCH (09:00)
[2018-09-11 09:02] VITALS: BP 121/64
[2018-09-11] MEDS: ACETAMINOPHEN/CODEINE 300MG - 30MG TAB PO PRN (09:15)
[2018-09-11] MEDS: CHOLESTYRAMINE 4 GM PACKET PO SCH ×2 (10:00→21:28)
[2018-09-11] MEDS: KCL 20MEQ/.9 SOD CHL 1,000 ML IV SCH ×2 (11:00→16:55)
[2018-09-11 11:59] VITALS: BP 131/61
--- NOTE | 2018-09-11 15:27 | Diagnostic Imaging Report ---
Exam: Left Hand Series (three views) History: Swollen left land. Comparison: None. Findings: 3 views of the hand. There is diffuse osteopenia. Fingers are partially flexed, which limits evaluation. There is a fracture of the mid aspect of the scaphoid bone with somewhat corticated bony appearance and mild displacement. There is extensive soft tissue swelling in the hand, most pronounced in the dorsal aspect, without evidence of bony destructive changes. There are atherosclerotic vascular calcifications. There are moderate to severe degenerative changes at the carpometacarpal joints as well as degenerative changes at the interphalangeal joints. Cystic changes at the carpometacarpal joints are more likely subchondral cysts than erosions. Joint space narrowing is pronounced at the first CMC joint. Impression: Soft tissue swelling of the hand, with a likely subacute fracture of the scaphoid. Moderate to severe degenerative changes of the hand. Signed by: Dr. Liliam Arzate MD on 09/11/2018 3:24 PM
[2018-09-11 16:00] VITALS: BP 157/71
[2018-09-11 20:00] VITALS: BP 107/51
[2018-09-12] VITALS (7 sets, daily range): BP systolic 106–132; BP diastolic 52–61
[2018-09-12] MEDS: METRONIDAZOLE 500MG/NS 100ML 100 ML IV SCH ×4 (03:25→21:20)
[2018-09-12] MEDS: VANCOMYCIN 250MG/5ML ORAL SOLN PO SCH ×4 (03:26→23:54)
[2018-09-12] MEDS: LEVOTHYROXINE SODIUM 75 MCG TAB PO SCH (03:26)
[2018-09-12] MEDS: KCL 20MEQ/.9 SOD CHL 1,000 ML IV SCH ×2 (03:26→23:01)
[2018-09-12 07:02] LABS: ANION GAP 16.8 mmol/L (8-16); BLOOD UREA NITROGEN 13 mg/dL (7-26); BUN/CREATININE RATIO 27 (6-25); CALCIUM 7.9 mg/dL (8.4-10.2); CARBON DIOXIDE 14 mmol/L (22-29); CHLORIDE 122 mmol/L (98-107); CREATININE, SERUM 0.49 mg/dL (0.57-1.11); EST GLOMERULAR FILTRATION RATE > 60 ML/MIN (60-); GLUCOSE 65 mg/dL (74-118); POTASSIUM 3.8 mmol/L (3.5-5.1); SODIUM 149 mmol/L (136-145)
[2018-09-12] MEDS: FAMOTIDINE 20 MG TAB PO SCH ×2 (07:30→16:30)
[2018-09-12] MEDS: BALSAM PERU/CASTOR OIL 60 GM OINT...G. TP SCH ×2 (08:10→17:35)
[2018-09-12] MEDS: ASPIRIN 325 MG TAB EC PO SCH (09:00)
[2018-09-12] MEDS: FOLIC ACID 1 MG TAB PO SCH ×3 (09:00→21:00)
[2018-09-12] MEDS: PREDNISONE 5 MG TAB PO SCH (09:00)
[2018-09-12] MEDS: CHOLESTYRAMINE 4 GM PACKET PO SCH ×2 (10:00→21:20)
[2018-09-12] MEDS: PANTOPRAZOLE 40 MG 10ML VIAL IV SCH (10:06)
[2018-09-12] MEDS ORDERED: KETAMINE HCL INJ 50 MG/ML 10 ML VIAL ONE (12:52)
[2018-09-12] MEDS ORDERED: LIDOCAINE HCL 2% LOCAL INJ 5 ML SDV VIAL INJ ONE (17:34)
[2018-09-12] MEDS ORDERED: PROPOFOL IV EMULSION 10 MG/ML 20 ML VIAL ONE (17:34)
[2018-09-12] MEDS ORDERED: BENZOCAINE/TETRACAINE/BUTAMBEN AERO SPRAY 56 GM CAN ONE (18:18)
--- NOTE | 2018-09-12 19:32 | Operative Report ---
DATE OF PROCEDURE: September 12, 2018 REFERRING PHYSICIAN: Dr. Sesar Méndez. PROCEDURE PERFORMED: Esophagogastroduodenoscopy and percutaneous endoscopic gastrostomy tube placement. INDICATIONS FOR PROCEDURE: Dysphagia, abnormal swallow evaluation. MEDICATION: Patient was done under MAC. Please see anesthesiologist's note. PROCEDURE: With the patient in left lateral decubitus position, flexible fiberoptic Olympus gastroscope was introduced into the esophagus under direct visualization without any difficulty. There was some patchy erythema noted in distal esophagus. The scope was then advanced with ease into the stomach traversing a small hiatal hernia. Mucosa overlying the antrum and the body revealed some patchy erythema. Pylorus was intubated with ease and the scope was advanced all the way to the second portion of the duodenum. The scope was then withdrawn slowly. Mucosa overlying the proximal second portion and the duodenal bulb appeared to be within normal limits. The scope was then withdrawn back into the stomach and after delineation of a safe entry point per transabdominal illumination and external digits of palpation, PEG tube placement was carried out in usual fashion. The scope was subsequently withdrawn after documenting a good positioning of the intragastric bumper. Patient tolerated the procedure well. IMPRESSION AND PLAN 1. Distal esophagitis, mild. 2. Small hiatal hernia. 3. Gastritis. 4. Percutaneous endoscopic gastrostomy tube insertion carried out in the usual fashion. Patient tolerated the procedure well. Gastrostomy tube to drain to gravity in a Garcia bag times 24 hours, then can use and repeat apply an abdominal binder to protect the tube and restraint patient. Job#: [id number] FELIBERTO cc:DR. SESAR MÉNDEZ
[2018-09-13] VITALS (7 sets, daily range): BP systolic 112–129; BP diastolic 55–82
[2018-09-13] MEDS: METRONIDAZOLE 500MG/NS 100ML 100 ML IV SCH ×4 (03:07→21:25)
[2018-09-13] MEDS: VANCOMYCIN 250MG/5ML ORAL SOLN PO SCH ×3 (05:08→18:36)
[2018-09-13] MEDS: LEVOTHYROXINE SODIUM 75 MCG TAB PO SCH (05:08)
[2018-09-13] MEDS: FAMOTIDINE 20 MG TAB PO SCH ×2 (07:30→18:36)
[2018-09-13 07:45] LABS: BASOPHILS % 0.1 % (0.0-1.0); EOSINOPHILS # (AUTO) 0.1 (0.0-0.4); EOSINOPHILS % 0.3 % (0.0-6.0); HEMATOCRIT 31.8 % (34.2-44.1); HEMOGLOBIN 10.5 g/dL (12.0-16.0); LYMPHOCYTES # (AUTO) 1.9 (1.0-3.2); LYMPHOCYTES % 12.7 % (18.0-39.1); MEAN CORPUSCULAR HEMOGLOBIN 33.1 pg (28-32); MEAN CORPUSCULAR VOLUME 100.3 fL (81-99); MONOCYTES # (AUTO) 0.3 (0.2-0.8); MONOCYTES % 1.8 % (4.4-11.3); NEUTROPHILS # (AUTO) 12.3 (2.1-6.9); NEUTROPHILS % 83.9 % (38.7-80.0); PLATELET COUNT 111 x10e3/uL (140-360); RED BLOOD COUNT 3.17 x10e6/uL (3.6-5.1); RED CELL DISTRIBUTION WIDTH 15.9 % (11.7-14.4)
[2018-09-13 08:22] LABS: BAND NEUTROPHILS % (MANUAL) 2 %; LYMPHOCYTES % (MANUAL) 3 % (19-48); NEUTROPHILS % (MANUAL) 95 % (40-74); PLATELET ESTIMATE SLIGHTLY DECREASED; PLATELET MORPHOLOGY COMMENT NORMAL
[2018-09-13 08:23] LABS: ANISOCYTOSIS SLIGHT; RBC MORPHOLOGY COMMENT ABNORMAL
[2018-09-13] MEDS: BALSAM PERU/CASTOR OIL 60 GM OINT...G. TP SCH ×2 (08:31→16:52)
[2018-09-13] MEDS: PANTOPRAZOLE 40 MG 10ML VIAL IV SCH (08:53)
[2018-09-13] MEDS: FOLIC ACID 1 MG TAB PO SCH ×3 (09:00→21:25)
[2018-09-13 09:44] LABS: ALANINE AMINOTRANSFERASE 10 IU/L (0-55); ALBUMIN 1.6 g/dL (3.5-5.0); ALBUMIN/GLOBULIN RATIO 0.5 (0.8-2.0); ALKALINE PHOSPHATASE 53 IU/L (40-150); ANION GAP 17.3 mmol/L (8-16); BLOOD UREA NITROGEN 6 mg/dL (7-26); BUN/CREATININE RATIO 12 (6-25); CALCIUM 7.3 mg/dL (8.4-10.2); CARBON DIOXIDE 11 mmol/L (22-29); CHLORIDE 125 mmol/L (98-107); CREATININE, SERUM 0.52 mg/dL (0.57-1.11); EST GLOMERULAR FILTRATION RATE > 60 ML/MIN (60-); POTASSIUM 3.3 mmol/L (3.5-5.1); SODIUM 150 mmol/L (136-145)
[2018-09-13 09:47] LABS: GLUCOSE 49 mg/dL (74-118)
[2018-09-13] MEDS: CHOLESTYRAMINE 4 GM PACKET PO SCH ×2 (10:00→21:41)
[2018-09-13] MEDS: D5.45%NS/KCL 20MEQ 1,000 ML IV SCH (10:00)
[2018-09-13] MEDS ORDERED: ACETAMINOPHEN 325 MG SUPP PR PRN (16:00)
[2018-09-13] MEDS: VANCOMYCIN 1GM/NS 250 ML 250 ML IV SCH (16:10)
[2018-09-13] MEDS: PREDNISONE 5 MG TAB PO SCH (18:36)
[2018-09-13] MEDS: ACETAMINOPHEN/CODEINE 300MG - 30MG TAB PO PRN (18:36)
[2018-09-13] MEDS: ASPIRIN 325 MG TAB EC PO SCH (18:36)
[2018-09-13] MEDS: MEROPENEM 500MG 500 MG in SODIUM CHLORIDE 0.9% 50ML 50 ML IV SCH (21:40)
[2018-09-14] VITALS (7 sets, daily range): BP systolic 99–108; BP diastolic 51–56
[2018-09-14] MEDS: VANCOMYCIN 250MG/5ML ORAL SOLN PO SCH ×4 (01:02→17:58)
[2018-09-14] MEDS: D5.45%NS/KCL 20MEQ 1,000 ML IV SCH (01:03)
[2018-09-14] MEDS: MEROPENEM 500MG 500 MG in SODIUM CHLORIDE 0.9% 50ML 50 ML IV SCH ×3 (05:37→21:46)
[2018-09-14] MEDS: METRONIDAZOLE 500MG/NS 100ML 100 ML IV SCH ×4 (05:37→20:37)
[2018-09-14] MEDS: LEVOTHYROXINE SODIUM 75 MCG TAB PO SCH (05:50)
[2018-09-14 06:28] LABS: BASOPHILS % 0.2 % (0.0-1.0); EOSINOPHILS % 0.3 % (0.0-6.0); HEMOGLOBIN 12.4 g/dL (12.0-16.0); LYMPHOCYTES # (AUTO) 2.3 (1.0-3.2); LYMPHOCYTES % 18.3 % (18.0-39.1); MEAN CORPUSCULAR HEMOGLOBIN 33.7 pg (28-32); MEAN CORPUSCULAR HGB CONC 34.4 g/dL (31-35); MEAN CORPUSCULAR VOLUME 97.8 fL (81-99); MONOCYTES # (AUTO) 0.3 (0.2-0.8); MONOCYTES % 2.2 % (4.4-11.3); NEUTROPHILS % 78.1 % (38.7-80.0); PLATELET COUNT 133 x10e3/uL (140-360); RED BLOOD COUNT 3.68 x10e6/uL (3.6-5.1); RED CELL DISTRIBUTION WIDTH 15.9 % (11.7-14.4)
[2018-09-14 06:52] LABS: ALANINE AMINOTRANSFERASE 8 IU/L (0-55); ALBUMIN 1.6 g/dL (3.5-5.0); ALBUMIN/GLOBULIN RATIO 0.5 (0.8-2.0); ALKALINE PHOSPHATASE 67 IU/L (40-150); ANION GAP 11.4 mmol/L (8-16); BLOOD UREA NITROGEN 8 mg/dL (7-26); BUN/CREATININE RATIO 13 (6-25); CALCIUM 7.1 mg/dL (8.4-10.2); CARBON DIOXIDE 18 mmol/L (22-29); CHLORIDE 122 mmol/L (98-107); CREATININE, SERUM 0.61 mg/dL (0.57-1.11); EST GLOMERULAR FILTRATION RATE > 60 ML/MIN (60-); GLUCOSE 273 mg/dL (74-118); POTASSIUM 3.4 mmol/L (3.5-5.1); SODIUM 148 mmol/L (136-145)
[2018-09-14] MEDS: BALSAM PERU/CASTOR OIL 60 GM OINT...G. TP SCH ×2 (08:44→16:54)
[2018-09-14] MEDS: ASPIRIN 325 MG TAB EC PO SCH (08:44)
[2018-09-14] MEDS: PREDNISONE 5 MG TAB PO SCH (08:44)
[2018-09-14] MEDS: PANTOPRAZOLE 40 MG 10ML VIAL IV SCH (08:44)
[2018-09-14] MEDS: FAMOTIDINE 20 MG TAB PO SCH ×2 (08:44→17:06)
[2018-09-14] MEDS: FOLIC ACID 1 MG TAB PO SCH ×3 (08:44→20:38)
[2018-09-14] MEDS: ACETAMINOPHEN/CODEINE 300MG - 30MG TAB PO PRN ×2 (08:44→17:58)
[2018-09-14] MEDS ORDERED: POTASSIUM CHLORIDE 20MEQ/15ML UDC PEG NR (10:00)
[2018-09-14] MEDS ORDERED: DEXTROSE 50% SYRINGE 50 ML IV PRN (10:00)
[2018-09-14] MEDS: CHOLESTYRAMINE 4 GM PACKET PO SCH ×2 (10:29→21:46)
[2018-09-14] MEDS: INSULIN LISPRO 100 UNIT/1 ML 3ML VIAL SQ SCH ×2 (12:07→18:47)
[2018-09-14] MEDS: CLONAZEPAM 0.5 MG TAB PO PRN (14:35)
[2018-09-14] MEDS: VANCOMYCIN 1GM/NS 250 ML 250 ML IV SCH (16:58)
[2018-09-15] VITALS (7 sets, daily range): BP systolic 99–120; BP diastolic 55–61
[2018-09-15] MEDS: VANCOMYCIN 250MG/5ML ORAL SOLN PO SCH ×4 (00:45→16:39)
[2018-09-15] MEDS: CLONAZEPAM 0.5 MG TAB PO PRN (03:23)
[2018-09-15] MEDS: METRONIDAZOLE 500MG/NS 100ML 100 ML IV SCH ×4 (03:23→21:34)
[2018-09-15] MEDS: MEROPENEM 500MG 500 MG in SODIUM CHLORIDE 0.9% 50ML 50 ML IV SCH ×3 (05:52→22:20)
[2018-09-15] MEDS: LEVOTHYROXINE SODIUM 75 MCG TAB PO SCH (05:54)
[2018-09-15] MEDS: INSULIN LISPRO 100 UNIT/1 ML 3ML VIAL SQ SCH ×4 (06:04→18:00)
[2018-09-15 06:54] LABS: ANION GAP 12.3 mmol/L (8-16); BLOOD UREA NITROGEN 9 mg/dL (7-26); BUN/CREATININE RATIO 16 (6-25); CALCIUM 7.2 mg/dL (8.4-10.2); CARBON DIOXIDE 19 mmol/L (22-29); CHLORIDE 118 mmol/L (98-107); CREATININE, SERUM 0.55 mg/dL (0.57-1.11); EST GLOMERULAR FILTRATION RATE > 60 ML/MIN (60-); GLUCOSE 186 mg/dL (74-118); MAGNESIUM 1.5 MG/DL (1.3-2.1); POTASSIUM 3.3 mmol/L (3.5-5.1); SODIUM 146 mmol/L (136-145)
[2018-09-15] MEDS ORDERED: POTASSIUM CHLORIDE 20MEQ/15ML UDC NG NR ×2 (08:30→11:00)
[2018-09-15] MEDS ORDERED: SODIUM CHLORIDE 0.9% 250ML 250 ML ONE (08:43)
[2018-09-15] MEDS: CHOLESTYRAMINE 4 GM PACKET PO SCH ×2 (08:50→21:35)
[2018-09-15] MEDS: FAMOTIDINE 20 MG TAB PO SCH ×2 (08:50→16:39)
[2018-09-15] MEDS: BALSAM PERU/CASTOR OIL 60 GM OINT...G. TP SCH ×2 (08:50→16:20)
[2018-09-15] MEDS: FOLIC ACID 1 MG TAB PO SCH ×3 (08:50→21:34)
[2018-09-15] MEDS: ASPIRIN 325 MG TAB EC PO SCH (08:50)
[2018-09-15] MEDS: PREDNISONE 5 MG TAB PO SCH (08:50)
[2018-09-15] MEDS: VANCOMYCIN 1GM/NS 250 ML 250 ML IV SCH (16:38)
[2018-09-16] VITALS (8 sets, daily range): BP systolic 106–134; BP diastolic 54–81
[2018-09-16] MEDS: VANCOMYCIN 250MG/5ML ORAL SOLN PO SCH ×3 (00:03→12:00)
[2018-09-16] MEDS: ACETAMINOPHEN/CODEINE 300MG - 30MG TAB PO PRN (02:19)
[2018-09-16] MEDS: METRONIDAZOLE 500MG/NS 100ML 100 ML IV SCH ×4 (02:19→22:32)
[2018-09-16] MEDS: LEVOTHYROXINE SODIUM 75 MCG TAB PO SCH (05:37)
[2018-09-16] MEDS: MEROPENEM 500MG 500 MG in SODIUM CHLORIDE 0.9% 50ML 50 ML IV SCH ×3 (05:37→23:42)
[2018-09-16 06:33] LABS: ALBUMIN 1.4 g/dL (3.5-5.0); ALBUMIN/GLOBULIN RATIO 0.4 (0.8-2.0); ALKALINE PHOSPHATASE 74 IU/L (40-150); ANION GAP 6.2 mmol/L (8-16); BLOOD UREA NITROGEN 9 mg/dL (7-26); BUN/CREATININE RATIO 18 (6-25); CARBON DIOXIDE 22 mmol/L (22-29); CHLORIDE 112 mmol/L (98-107); CREATININE, SERUM 0.49 mg/dL (0.57-1.11); EST GLOMERULAR FILTRATION RATE > 60 ML/MIN (60-); GLUCOSE 221 mg/dL (74-118); POTASSIUM 3.2 mmol/L (3.5-5.1); SODIUM 137 mmol/L (136-145)
[2018-09-16 06:38] LABS: ALANINE AMINOTRANSFERASE < 6 IU/L (0-55)
[2018-09-16 06:42] LABS: CALCIUM 6.7 mg/dL (8.4-10.2)
[2018-09-16] MEDS: INSULIN LISPRO 100 UNIT/1 ML 3ML VIAL SQ SCH ×4 (06:58→17:03)
[2018-09-16] MEDS: FOLIC ACID 1 MG TAB PO SCH ×3 (08:35→22:32)
[2018-09-16] MEDS: FAMOTIDINE 20 MG TAB PO SCH ×2 (08:35→16:22)
[2018-09-16] MEDS: ASPIRIN 325 MG TAB EC PO SCH (08:35)
[2018-09-16] MEDS: BALSAM PERU/CASTOR OIL 60 GM OINT...G. TP SCH ×2 (08:35→16:22)
[2018-09-16] MEDS: POTASSIUM CHLORIDE 20MEQ/15ML UDC NG SCH (09:00)
[2018-09-16] MEDS: CHOLESTYRAMINE 4 GM PACKET PO SCH ×2 (09:47→22:45)
[2018-09-16] MEDS: KCL 20MEQ/.9 SOD CHL 1,000 ML IV SCH (09:47)
[2018-09-16] MEDS ORDERED: POTASSIUM CHLORIDE 20MEQ/15ML UDC NG ONE (12:00)
[2018-09-16] MEDS: VANCOMYCIN 1GM/NS 250 ML 250 ML IV SCH (16:30)
[2018-09-16] MEDS ORDERED: MEROPENEM 500 MG VIAL ONE (22:31)
[2018-09-16] MEDS ORDERED: SODIUM CHLORIDE 0.9% 50ML 50 ML ONE (22:33)
[2018-09-17] VITALS (8 sets, daily range): BP systolic 102–125; BP diastolic 55–69
[2018-09-17] MEDS: METRONIDAZOLE 500MG/NS 100ML 100 ML IV SCH ×4 (04:03→21:17)
[2018-09-17] MEDS ORDERED: MEROPENEM 500 MG VIAL ONE ×2 (06:03→20:57)
[2018-09-17] MEDS ORDERED: SODIUM CHLORIDE 0.9% 50ML 50 ML ONE (06:04)
[2018-09-17] MEDS: MEROPENEM 500MG 500 MG in SODIUM CHLORIDE 0.9% 50ML 50 ML IV SCH ×3 (06:04→21:58)
[2018-09-17] MEDS: LEVOTHYROXINE SODIUM 75 MCG TAB PO SCH (06:04)
[2018-09-17] MEDS: INSULIN LISPRO 100 UNIT/1 ML 3ML VIAL SQ SCH ×4 (06:08→18:00)
[2018-09-17 06:42] LABS: ANION GAP 9.8 mmol/L (8-16); BLOOD UREA NITROGEN 9 mg/dL (7-26); BUN/CREATININE RATIO 20 (6-25); CARBON DIOXIDE 21 mmol/L (22-29); CHLORIDE 110 mmol/L (98-107); CREATININE, SERUM 0.45 mg/dL (0.57-1.11); EST GLOMERULAR FILTRATION RATE > 60 ML/MIN (60-); GLUCOSE 132 mg/dL (74-118); POTASSIUM 3.8 mmol/L (3.5-5.1); SODIUM 137 mmol/L (136-145)
[2018-09-17 06:43] LABS: MAGNESIUM 1.1 MG/DL (1.3-2.1)
[2018-09-17] MEDS ORDERED: MAGNESIUM SULF 1GRAM/DEXTROSE 100 ML IV ONE ×2 (08:45→13:15)
[2018-09-17] MEDS: FAMOTIDINE 20 MG TAB PO SCH ×2 (10:23→16:42)
[2018-09-17] MEDS: BALSAM PERU/CASTOR OIL 60 GM OINT...G. TP SCH ×2 (10:24→18:02)
[2018-09-17] MEDS: CHOLESTYRAMINE 4 GM PACKET PO SCH ×2 (10:24→21:58)
[2018-09-17] MEDS: FOLIC ACID 1 MG TAB PO SCH ×3 (10:24→21:17)
[2018-09-17] MEDS: ASPIRIN 325 MG TAB EC PO SCH (10:24)
[2018-09-17] MEDS: POTASSIUM CHLORIDE 20MEQ/15ML UDC NG SCH (10:24)
[2018-09-17] MEDS: KCL 20MEQ/.9 SOD CHL 1,000 ML IV SCH (18:02)
[2018-09-17] MEDS: NYSTATIN 15 GM POWDER UD BTL TOP SCH (18:02)
[2018-09-17] MEDS: VANCOMYCIN 1GM/NS 250 ML 250 ML IV SCH (18:02)
[2018-09-17] MEDS: CLONAZEPAM 0.5 MG TAB PO PRN (21:17)
[2018-09-18] VITALS (8 sets, daily range): BP systolic 114–135; BP diastolic 64–88
[2018-09-18] MEDS: LEVOTHYROXINE SODIUM 75 MCG TAB PO SCH (05:36)
[2018-09-18] MEDS: MEROPENEM 500MG 500 MG in SODIUM CHLORIDE 0.9% 50ML 50 ML IV SCH ×3 (05:36→22:05)
[2018-09-18] MEDS: INSULIN LISPRO 100 UNIT/1 ML 3ML VIAL SQ SCH ×4 (06:00→18:00)
[2018-09-18 06:45] LABS: BASOPHILS % 0.2 % (0.0-1.0); EOSINOPHILS # (AUTO) 0.2 (0.0-0.4); EOSINOPHILS % 1.5 % (0.0-6.0); HEMATOCRIT 29.6 % (34.2-44.1); HEMOGLOBIN 10.4 g/dL (12.0-16.0); LYMPHOCYTES # (AUTO) 2.7 (1.0-3.2); LYMPHOCYTES % 17.4 % (18.0-39.1); MEAN CORPUSCULAR HEMOGLOBIN 33.1 pg (28-32); MEAN CORPUSCULAR HGB CONC 35.1 g/dL (31-35); MEAN CORPUSCULAR VOLUME 94.3 fL (81-99); MONOCYTES # (AUTO) 0.7 (0.2-0.8); MONOCYTES % 4.3 % (4.4-11.3); NEUTROPHILS # (AUTO) 11.7 (2.1-6.9); NEUTROPHILS % 75.9 % (38.7-80.0); PLATELET COUNT 246 x10e3/uL (140-360); RED BLOOD COUNT 3.14 x10e6/uL (3.6-5.1); RED CELL DISTRIBUTION WIDTH 15.7 % (11.7-14.4)
[2018-09-18 07:24] LABS: ALANINE AMINOTRANSFERASE 8 IU/L (0-55); ALBUMIN 1.3 g/dL (3.5-5.0); ALBUMIN/GLOBULIN RATIO 0.3 (0.8-2.0); ALKALINE PHOSPHATASE 106 IU/L (40-150); ANION GAP 7.4 mmol/L (8-16); BLOOD UREA NITROGEN 10 mg/dL (7-26); BUN/CREATININE RATIO 23 (6-25); CARBON DIOXIDE 23 mmol/L (22-29); CHLORIDE 106 mmol/L (98-107); CREATININE, SERUM 0.44 mg/dL (0.57-1.11); EST GLOMERULAR FILTRATION RATE > 60 ML/MIN (60-); GLUCOSE 111 mg/dL (74-118); MAGNESIUM 1.6 MG/DL (1.3-2.1); POTASSIUM 3.4 mmol/L (3.5-5.1); SODIUM 133 mmol/L (136-145)
[2018-09-18 07:30] LABS: CALCIUM 6.7 mg/dL (8.4-10.2)
[2018-09-18] MEDS ORDERED: POTASSIUM CHLORIDE 10MEQ EA NG ONE (08:45)
[2018-09-18] MEDS: BALSAM PERU/CASTOR OIL 60 GM OINT...G. TP SCH ×2 (09:34→16:15)
[2018-09-18] MEDS: NYSTATIN 15 GM POWDER UD BTL TOP SCH ×2 (09:34→16:14)
[2018-09-18] MEDS: FOLIC ACID 1 MG TAB PO SCH ×3 (09:55→20:54)
[2018-09-18] MEDS: ASPIRIN 325 MG TAB EC PO SCH (09:55)
[2018-09-18] MEDS: CHOLESTYRAMINE 4 GM PACKET PO SCH ×2 (09:55→22:05)
[2018-09-18] MEDS: POTASSIUM CHLORIDE 20MEQ/15ML UDC NG SCH (09:55)
[2018-09-18] MEDS: LACTOBACILLUS ACIDOPHILUS CAPSULE PO SCH (09:55)
[2018-09-18] MEDS: FAMOTIDINE 20 MG TAB PO SCH ×2 (09:55→16:14)
[2018-09-18] MEDS: CLONAZEPAM 0.5 MG TAB PO PRN (16:16)
[2018-09-18] MEDS ORDERED: SODIUM CHLORIDE 0.9% 250ML 250 ML ONE (17:09)
[2018-09-18] MEDS: VANCOMYCIN 1GM/NS 250 ML 250 ML IV SCH (17:12)
[2018-09-19] VITALS: BP 102/60
[2018-09-19] MEDS: KCL 20MEQ/.9 SOD CHL 1,000 ML IV SCH (00:42)
[2018-09-19 04:00] VITALS: BP 121/56
[2018-09-19] MEDS: LEVOTHYROXINE SODIUM 75 MCG TAB PO SCH (05:21)
[2018-09-19] MEDS: MEROPENEM 500MG 500 MG in SODIUM CHLORIDE 0.9% 50ML 50 ML IV SCH ×2 (05:21→15:14)
[2018-09-19] MEDS: INSULIN LISPRO 100 UNIT/1 ML 3ML VIAL SQ SCH ×2 (06:00)
[2018-09-19 07:19] LABS: ANION GAP 7.8 mmol/L (8-16); BLOOD UREA NITROGEN 9 mg/dL (7-26); BUN/CREATININE RATIO 18 (6-25); CARBON DIOXIDE 26 mmol/L (22-29); CHLORIDE 104 mmol/L (98-107); EST GLOMERULAR FILTRATION RATE > 60 ML/MIN (60-); GLUCOSE 135 mg/dL (74-118); POTASSIUM 3.8 mmol/L (3.5-5.1); SODIUM 134 mmol/L (136-145)
[2018-09-19 08:00] VITALS: BP 119/68
[2018-09-19] MEDS ORDERED: VANCOMYCIN 1GM/NS 250 ML 250 ML IV SCH (08:00)
[2018-09-19] MEDS: FAMOTIDINE 20 MG TAB PO SCH (09:00)
[2018-09-19] MEDS: FOLIC ACID 1 MG TAB PO SCH (09:00)
[2018-09-19] MEDS: POTASSIUM CHLORIDE 20MEQ/15ML UDC NG SCH (09:00)
[2018-09-19] MEDS: LACTOBACILLUS ACIDOPHILUS CAPSULE PO SCH (09:00)
[2018-09-19] MEDS: NYSTATIN 15 GM POWDER UD BTL TOP SCH (09:00)
[2018-09-19] MEDS: ASPIRIN 325 MG TAB EC PO SCH (09:00)
[2018-09-19] MEDS: BALSAM PERU/CASTOR OIL 60 GM OINT...G. TP SCH (09:00)
[2018-09-19] MEDS: CHOLESTYRAMINE 4 GM PACKET PO SCH (10:00)
[2018-09-19] MEDS ORDERED: METRONIDAZOLE 500MG/NS 100ML 100 ML IV SCH (14:00)
--- NOTE | 2018-11-08 18:41 | Discharge Summary ---
CHIEF COMPLAINT: Altered mental status. FINAL DIAGNOSES 1. Sepsis. 2. Clostridium difficile. 3. Methicillin-sensitive Staphylococcus aureus bacteremia. 4. Status post cerebrovascular accident. PROCEDURES: EGD with PEG placement. DISPOSITION: [facility]. HOSPITAL COURSE: An 83-year-old female, retirement resident with history of rheumatoid arthritis, rheumatic lung disease, pulmonary tuberculosis, hypothyroidism, CVA, atherosclerotic heart disease. Has been doing well, in her usual health, baseline until a few days ago when she began having episodes of diarrhea. Studies were conducted at the retirement. Blood studies were showing elevated white count. Diarrhea was noted able to be controlled. She was also noted to have burning upon urination with some change in mental status. Staff in the retirement was instructed to send the patient to the ER here. With further review and evaluation, the patient was admitted to the facility for evaluation and treatment regarding sepsis, possible urosepsis, possible C. diff., possible pneumonia, and metabolic encephalopathy, and will be transferred to the medical floor from the ER. She began her antibiotic coverage with Flagyl coverage. The retirement medications will continue. She was on the med-surg floor, receiving the cardiac diet and as mentioned, she was placed on Flagyl as well as cefepime along with her routine daily medications. Her laboratory studies were showing stable electrolytes. BUN 33, creatinine 0.81, and glucose 129. CBC; hemoglobin of 15.6, white cell count was 27,000. The patient was then being seen by Dr. Grullon from a pulmonary standpoint and following his review, it was felt that the patient had no issues with TB. Patient was taken off the isolation and was taken off the cefepime. Patient will now be placed on Zosyn as well as vancomycin as well as supplemental O2. She remains in a nonverbal state. In addition to her vancomycin IV, she was on vancomycin p.o.. Her C. diff. studies returned positive. NG tube had been placed for her nutrition and following her labs, it showed that her potassium had trended down to 3.0 on September 10, 2018 and she was started on potassium replacement IV. Does have issues with dementia. Continued to have issues with weakness, demonstrating a decreased appetite. Discussions were being entertained with the family for possible PEG placement for nutrition. Further followup with Dr. Cotter led to the IV vancomycin being stopped. Her potassium improved to stable status. Family elected for PEG placement. This was carried out by Dr. Jamal Pope. Code status was adjusted to a DNR. Urine cultures were returning positive for findings of E. coli. She tolerated the PEG placement, tolerating tube feeding well. She was noted to have left-sided hemiparesis, mild evidence of dementia. White blood cell count improved to 12,700 noted on September 14, 2018. Was still designated to have a poor prognosis. Was also noted to have MRSA bacteremia per Dr. Cotter. Her diarrhea was improving. She was being evaluated now for [place] placement, LTAC. Blood cultures were returning positive for Klebsiella as well as methicillin-sensitive Staphylococcus aureus. Her leukocytosis continued to show improvement. Dr. Cotter was requesting her to receive further antibiotics IV for 14 more days. Her C. diff was resolving and her diarrhea had ceased. It was noted on September 17, 2018 that her request for LTAC placement was denied. Case management was working on an appeal, noted to be in progress at the time. She was having no further issues with cough, shortness of breath, or chest pain. There was no dizziness. No more diarrhea. Her white blood cell count was holding steady at 15,000. Her appeal came through. She was able to be discharged to [facility], transferred there on September 19, 2018 in guarded condition. EKGs are showing sinus tachycardia with left axis deviation and left bundle branch block. PROCEDURES: As mentioned, on September 12, 2018, EGD with PEG placement due to dysphagia with abnormal swallow evaluation. Procedure was conducted by Dr. Jamal Pope. Conclusion of the procedure revealed findings of distal esophagitis, small hiatal hernia, and gastritis. The PEG was placed in the usual fashion. Request was made for an abdominal binder to be placed to protect the tube and request also for soft hand restraints. As mentioned, patient stabilized to the point where she was able to be transferred to [facility] LT for continuation of recovery. Transferred there as mentioned on September 19, 2018. She will continue on her current MARs. Continue on her current PEG diet. I will be monitoring her progress on a daily basis at that facility and adjustments will be made to progress appropriately. Dictated by: THEO Box Job#: [id number] MANUEL
== END 2018-09-19 15:47 | DRG 871 ==
LOC: ER 19:58 → ERHOLD 22:54 → MED/SURG3 23:12
PROVIDERS: ADMIT Internal Medicine; ATTEND Internal Medicine
PROC: 0DH63UZ Insertion of Feeding Device into Stomach, Percutaneous Approach (ICD-10-PCS; 2018-09-12)
PROC: 0DJ08ZZ Inspection of Upper Intestinal Tract, Via Natural or Artificial Opening Endoscopic (ICD-10-PCS; principal; 2018-09-12 16:30)
DX: A41.9 Sepsis, unspecified organism (principal); J18.9 Pneumonia, unspecified organism; G93.41 Metabolic encephalopathy; E43 Unspecified severe protein-calorie malnutrition; I69.354 Hemiplegia and hemiparesis following cerebral infarction affecting left non-dominant side; A04.72 Enterocolitis due to Clostridium difficile, not specified as recurrent; R78.81 Bacteremia; N39.0 Urinary tract infection, site not specified; J84.10 Pulmonary fibrosis, unspecified; E03.9 Hypothyroidism, unspecified; Z66 Do not resuscitate; F03.90 Unspecified dementia, unspecified severity, without behavioral disturbance, psychotic disturbance, mood disturbance, and anxiety; E87.6 Hypokalemia; B95.61 Methicillin susceptible Staphylococcus aureus infection as the cause of diseases classified elsewhere; K20.9 Esophagitis, unspecified; K44.9 Diaphragmatic hernia without obstruction or gangrene; M06.9 Rheumatoid arthritis, unspecified; Z86.11 Personal history of tuberculosis; M05.10 Rheumatoid lung disease with rheumatoid arthritis of unspecified site; Z74.01 Bed confinement status; Z68.22 Body mass index [BMI] 22.0-22.9, adult; I25.10 Atherosclerotic heart disease of native coronary artery without angina pectoris
CPT/HCPCS: 36415; 43246; 70450; 71045; 74018; 80048; 80053; 80202; 81001; 82550; 82553; 82947; 82948; 83036; 83605; 83735; 83880; 84134; 84484; 85025; 85610; 85730; 86140; 87040; 87071; 87086; 87186; 87205; 87493; 93005; 99284; J0692; J2001; J2185; J2543; J3370; J3475; J3480; J7030; J7050; J7512